=== PATIENT | female | born 1975 | race Caucasian/White ===

== ENCOUNTER 2017-09-30 21:47 | Emergency (ER) | payer MEDICAID, OTHER ==
[~2017-09-30] VITALS: Ht 162.6 cm; Wt 65.8 kg
[~2017-09-30 21:47] MED LIST: CEPHALEXIN500 MG ORAL; CLEOCIN150 MG ORAL; CYCLOBENZAPRINE10 MG ORAL; IBUPROFEN600 MG ORAL; IBUPROFEN800 MG ORAL; NKM; NORCO 5-325 TA1 EACH ORAL; ZOFRAN ODT4 MG ORAL
[2017-09-30] MEDS ORDERED: SYNTHROID25 MCG ORAL (22:02)
--- NOTE | 2017-09-30 23:18 | Emergency Room Report ---
History of Present Illness General Chief Complaint: Pain Source: Patient Present Illness HPI Patient is a 42-year-old female who presented after increased left-sided breast pain. Patient gradual onset of symptoms. The patient stated that she had increased pain to the left side. This had been associated with subjective chills and fever. The patient denied any recent trauma. She had previous breast augmentation Allergies: Coded Allergies: No Known Allergies (Unverified , 09/30/17) Patient History Past Medical History: see triage record Last Menstrual Period: 2 weeks ago Now: No - IUD, 4- years ago Reviewed Nursing Documentation: PMH: Agreed; PSxH: Agreed Nursing Documentation-PMH Past Medical History: No History, Except For Hx Cardiac Problems: No - hypothyroidism Review of Systems All Other Systems: negative except mentioned in HPI Physical Exam Vital Signs Date Time Temp Pulse Resp B/P (MAP) Pulse Ox O2 Delivery O2 Flow Rate FiO2 09/30/17 21:54 98.6 89 16 107/64 97 Room Air 98.6 Sp02 EP Interpretation: reviewed, normal General Appearance: normal inspection, well appearing, no apparent distress, alert, GCS 15, non-toxic Head: atraumatic ENT: normal ENT inspection, hearing grossly normal, normal voice Neck: normal inspection, full range of motion, supple, no bony tend Respiratory: normal inspection, lungs clear, normal breath sounds, no respiratory distress, no retraction, no wheezing Cardiovascular #1: regular rate, rhythm, no edema Gastrointestinal: normal inspection, normal bowel sounds, non tender, soft, no guarding, no hernia Genitourinary: no CVA tenderness Musculoskeletal: normal inspection, back normal, normal range of motion Neurologic: normal inspection, alert, oriented x3, responsive, automatic pattern edger III-XII nml as tested, motor strength/tone normal, speech normal Psychiatric: normal inspection, judgement/insight normal, mood/affect normal Skin: normal inspection, normal color, abrasions - left breast superficial. Medical Decision Making Diagnostic Impression: Primary Impression: Cellulitis of breast ER Course The patient presented for left breast pain. Differential diagnosis included wasn't limited to implant leakage, a breast abscess, deep venous thrombosis, mastitis, breast cancer among others.Because of complexity of patient's case laboratory testing and imaging studies were ordered. The breast ultrasound was ordered to evaluate for possible abscess. The patient was given prescription for Keflex.The patient is advised to follow up with primary care doctor or Gen. surgeon in 1-2 days the for MRI breast. Patient is advised to return if any worsening condition or if any changes in status that are concerning. This report is dictated with [employer] studio technician video operator software which may occasionally lead to discrepancies related to use of this software. Labs Test 09/30/17 22:30 White Blood Count 6.8 K/UL (4.8-10.8) Red Blood Count 4.93 M/UL (4.20-5.40) Hemoglobin 15.0 G/DL (12.0-16.0) Hematocrit 44.6 % (37.0-47.0) Mean Corpuscular Volume 90 FL (80-99) Mean Corpuscular Hemoglobin 30.4 PG (27.0-31.0) Mean Corpuscular Hemoglobin Concent 33.7 G/DL (32.0-36.0) Red Cell Distribution Width 12.1 % (11.6-14.8) Platelet Count 186 K/UL (150-450) Mean Platelet Volume 7.9 FL (6.5-10.1) Neutrophils (%) (Auto) 62.9 % (45.0-75.0) Lymphocytes (%) (Auto) 23.4 % (20.0-45.0) Monocytes (%) (Auto) 7.3 % (1.0-10.0) Eosinophils (%) (Auto) 5.2 % (0.0-3.0) Basophils (%) (Auto) 1.2 % (0.0-2.0) Sodium Level 138 MMOL/L (136-145) Potassium Level 3.5 MMOL/L (3.5-5.1) Chloride Level 104 MMOL/L (98-107) Carbon Dioxide Level 25 MMOL/L (21-32) Anion Gap 10 mmol/L (5-15) Blood Urea Nitrogen 13 mg/dL (7-18) Creatinine 0.7 MG/DL (0.55-1.30) Estimat Glomerular Filtration Rate > 60 mL/min (>60) Glucose Level 94 MG/DL (74-106) Calcium Level 8.9 MG/DL (8.5-10.1) Total Bilirubin 0.2 MG/DL (0.2-1.0) Aspartate Amino Transf (AST/SGOT) 12 U/L (15-37) Alanine Aminotransferase (ALT/SGPT) 21 U/L (12-78) Alkaline Phosphatase 39 U/L (46-116) Total Protein 7.6 G/DL (6.4-8.2) Albumin 3.6 G/DL (3.4-5.0) Globulin 4.0 g/dL Albumin/Globulin Ratio 0.9 (1.0-2.7) Last Vital Signs Date Time Temp Pulse Resp B/P (MAP) Pulse Ox O2 Delivery O2 Flow Rate FiO2 09/30/17 21:54 98.6 89 16 107/64 97 Room Air 98.6 Status: improved Disposition: HOME, SELF-CARE Condition: Stable Scripts Cephalexin* (KEFLEX*) 500 Mg Capsule 500 MG ORAL EVERY 6 HOURS, #28 CAP Prov: Song Wright MD 09/30/17 Referrals: [facility],REFERRING (PCP) Song Wright MD September 30, 2017 23:18
[2017-09-30 23:24] LABS: BASOPHILS % (AUTO) 1.2 % (0.0-2.0); EOSINOPHILS % (AUTO) 5.2 % (0.0-3.0); HEMATOCRIT 44.6 % (37.0-47.0); LYMPHOCYTES % (AUTO) 23.4 % (20.0-45.0); MEAN CORPUSCULAR VOLUME 90 FL (80-99); MONOCYTES % (AUTO) 7.3 % (1.0-10.0); NEUTROPHILS % (AUTO) 62.9 % (45.0-75.0); PLATELET COUNT 186 K/UL (150-450); RED BLOOD COUNT 4.93 M/UL (4.20-5.40); RED CELL DISTRIBUTION WIDTH 12.1 % (11.6-14.8); WHITE BLOOD COUNT 6.8 K/UL (4.8-10.8)
[2017-09-30 23:34] LABS: ANION GAP 10 mmol/L (5-15); BLOOD UREA NITROGEN 13 mg/dL (7-18); CALCIUM 8.9 MG/DL (8.5-10.1); CARBON DIOXIDE 25 MMOL/L (21-32); CHLORIDE 104 MMOL/L (98-107); CREATININE 0.7 MG/DL (0.55-1.30); POTASSIUM 3.5 MMOL/L (3.5-5.1); SODIUM 138 MMOL/L (136-145)
[2017-09-30] MEDS ORDERED: CEPHALEXIN500 MG ORAL (23:38)
[2017-09-30 23:40] LABS: ALANINE AMINOTRANSFERASE 21 U/L (12-78); ALBUMIN 3.6 G/DL (3.4-5.0); ALBUMIN/GLOBULIN RATIO 0.9 (1.0-2.7); ALKALINE PHOSPHATASE 39 U/L (46-116); ASPARTATE AMINO TRANSFERASE 12 U/L (15-37); BILIRUBIN,TOTAL 0.2 MG/DL (0.2-1.0)
[2017-09-30] MEDS ORDERED: Cephalexin 250 MG/5 ML SUSP 100ml ORAL ONE (23:45)
[2017-10-01] MEDS ORDERED: Cephalexin 500mg cap ORAL ONE
[2017-10-01 00:04] VITALS: BP_SYST 107; BP_SYST 112; BP_DIAS 64; BP_DIAS 71
--- NOTE | 2017-10-01 10:10 | Diagnostic Imaging Report ---
Indication: Left breast pain. History of breast implant. TECHNIQUE: Grayscale imaging of the left breast performed in the area of pain. COMPARISON: None FINDINGS: The anterior capsule of the implant is noted. There is a hypoechoic lesion incidentally noted measuring 1 cm within the left breast at 2:00. Findings are nonspecific. There is no evidence of an abscess. IMPRESSION: No evidence of breast abscess. 1 cm hypoechoic mass incidentally noted. Evaluation for this is incomplete without mammographic and clinical evaluation. Note: Sonographic evaluation for breast implant dysfunction or injury is limited. Suggest MRI for further evaluation of this if warranted clinically.
== END 2017-10-01 00:05 | disposition home or self-care (01) ==
LOC: EMR 22:12
DX: N61.0 Mastitis without abscess (principal); E03.9 Hypothyroidism, unspecified
CPT/HCPCS: 36415; 80053; 81025; 85025; 85651; 87040; 99283

== ENCOUNTER 2019-02-27 02:24 | Emergency (ER) | payer MEDICAID ==
[~2019-02-27] VITALS: Ht 162.6 cm; Wt 68.0 kg
[~2019-02-27 02:24] MED LIST changes: +SYNTHROID25 MCG ORAL
--- NOTE | 2019-02-27 02:35 | NUR ---
ED Nurse Note: Recieved pt from home, here with c/o right great toe pain and swelling, s/p mech fall, pt denies syncopal episode or K.O., toe has bruising and swelling noted, pt with pain at 10/10 and constant throbbing, denies any other discomforts, pt assisted tog urney and foot elevated with pillows, pulses present and cap refill >3 sec., pt refuses ice, will resume care as ordered and closely monitor.
--- NOTE | 2019-02-27 02:40 | Emergency Room Report ---
History of Present Illness General Chief Complaint: Lower Extremity Injury Source: Patient, Medical Record Present Illness HPI 44-year-old female with no past medical history. She presents with chief complaint of trauma to right great toe. She states she tripped and fell and the toe roll underneath her. This occurred a few hours ago. Now is very painful and is black and blue. Pain is 10 out of 10. Worse with walking. Better with rest. No other injury. Allergies: Coded Allergies: No Known Allergies (Unverified , 09/30/17) Patient History Past Medical History: see triage record, old chart reviewed Past Surgical History: none Pertinent Family History: none Social History: Denies: smoking Now: No Immunizations: other Reviewed Nursing Documentation: PMH: Agreed; PSxH: Agreed Nursing Documentation-PMH Past Medical History: No History, Except For Hx Cardiac Problems: No - hypothyroidism Review of Systems Eye: Denies: eye pain, blurred vision ENT: Denies: ear pain, nose congestion, throat swelling Respiratory: Denies: cough, shortness of breath Cardiovascular: Denies: chest pain, palpitations Gastrointestinal: Denies: abdominal pain, diarrhea, nausea, vomiting Musculoskeletal: Reports: joint pain; Denies: back pain Skin: Denies: rash Neurological: Denies: headache, numbness Endocrine: Denies: increased thirst, increased urine Hematologic/Lymphatic: Denies: easy bruising All Other Systems: negative except mentioned in HPI Physical Exam Vital Signs Date Time Temp Pulse Resp B/P (MAP) Pulse Ox O2 Delivery O2 Flow Rate FiO2 02/27/19 02:27 98.1 76 18 106/68 (81) 98 Room Air Vitals normal Sp02 EP Interpretation: reviewed, normal General Appearance: well appearing, no apparent distress, alert Head: normocephalic, atraumatic Eyes: bilateral eye PERRL, bilateral eye EOMI ENT: hearing grossly normal, normal pharynx Neck: full range of motion, supple, no meningismus Respiratory: chest non-tender, lungs clear, normal breath sounds Cardiovascular #1: regular rate, rhythm, no murmur Gastrointestinal: normal bowel sounds, non tender, no mass, no organomegaly, no bruit, non-distended Musculoskeletal: back normal, gait/station normal, normal range of motion, other - Right great toe: There is generalized edema and ecchymosis. No deformity. Dorsalis pulses normal. Psychiatric: mood/affect normal Procedures Splinting Splinting : Consent: Verbal Location: rt foot Pre-Made Type: ortho shoe Pre-Proc Neuro Vasc Exam: normal Post-Proc Neuro Vasc Exam: normal Patient Tolerated: Well Complications: None Medical Decision Making Diagnostic Impression: Primary Impression: Toe fracture, right Qualified Codes: S92.424A - Nondisplaced fracture of distal phalanx of right great toe, initial encounter for closed fracture ER Course Patient presents with a distal phalanx right great toe fracture. No dislocation. Patient splinted and discharged home. Other X-Ray Diagnostic Results Other X-Ray Diagnostic Results : X-Ray ordered: X-ray right great toe # of Views/Limited Vs Complete: 3 View Indication: Pain EP Interpretation: Yes Interpretation: no dislocation, no soft tissue swelling, other - nondisplaced distal phalanx fracture Impression: Other - distal phalanx frx Electronically Signed by: Guru Engel MD Last Vital Signs Date Time Temp Pulse Resp B/P (MAP) Pulse Ox O2 Delivery O2 Flow Rate FiO2 02/27/19 02:27 98.1 76 18 106/68 (81) 98 Room Air Status: improved Disposition: HOME, SELF-CARE Condition: Stable Scripts Ibuprofen* (MOTRIN*) 600 Mg Tablet 600 MG ORAL THREE TIMES A DAY, #30 TAB 0 Refills Prov: Guru Engel MD 02/27/19 Hydrocodone/Acetaminophen 5-325* (HYDROCODONE/ACETAMINOPHEN 5-325*) 1 Each Tablet 1 TAB ORAL Q6H PRN for For Pain, #15 TAB 0 Refills Prov: Guru Engel MD 02/27/19 Additional Instructions: Elevate leg. Ice pack to the area. Use crutches as needed. Return if symptoms worsen. Guru Engel MD Feb 27, 2019 02:39
[2019-02-27] MEDS ORDERED: HYDROcodone/Acetamin 5/325 tab ORAL ONE (02:45)
[2019-02-27] MEDS ORDERED: HYDROCODON-ACE1 EA15 ORAL (03:00)
[2019-02-27] MEDS ORDERED: IBUPROFEN600 MG ORAL (03:00)
[2019-02-27 03:10] VITALS: BP 106/68
--- NOTE | 2019-02-27 03:15 | NUR ---
ER DISCHARGE NOTE: Patient is cleared to be discharged per ERMD, pt is aox4, on room air, with stable vital signs. pt was given dc and prescription instructions, pt was able to verbalize understanding, pt id band removed without complications. pt is able to ambulate with steady gait. pt took all belongings. pt toe salvador taped, given crutches with training and return demonstrates proper use and verbalizes safety measures.
--- NOTE | 2019-02-27 04:43 | Diagnostic Imaging Report ---
EXAM: XR Right Toe(s), 2 or More Views CLINICAL HISTORY: TRAUMA TECHNIQUE: Frontal, lateral and oblique views of toe(s) of the right foot. COMPARISON: No relevant prior studies available. FINDINGS: Bones joints: Nondisplaced fracture through the medial base of the first distal phalanx with intra-articular extension. No dislocation. Soft tissues: Unremarkable. No radiopaque foreign body. IMPRESSION: Nondisplaced fracture through the medial base of the first distal phalanx with intra-articular extension.
== END 2019-02-27 03:10 | disposition home or self-care (01) ==
LOC: EMR 02:35
DX: S92.424A Nondisplaced fracture of distal phalanx of right great toe, initial encounter for closed fracture (principal); E03.9 Hypothyroidism, unspecified; W01.0XXA Fall on same level from slipping, tripping and stumbling without subsequent striking against object, initial encounter; Y92.9 Unspecified place or not applicable
CPT/HCPCS: 73660; Z7502; 99283

== ENCOUNTER 2019-03-14 11:05 | Emergency (ER) | payer MEDICAID ==
[~2019-03-14] VITALS: Ht 167.6 cm; Wt 63.5 kg
[~2019-03-14 11:05] MED LIST changes: +HYDROCODON-ACE1 EA15 ORAL
[2019-03-14] MEDS ORDERED: Tetanus/Diptheria/Pertussis IM ONE (12:00)
[2019-03-14] MEDS ORDERED: Ampicillin/Sulbactam Sod 3 GM in NS 110 ML IVPB ONE (12:00)
--- NOTE | 2019-03-14 12:22 | Diagnostic Imaging Report ---
Indication: Foot Pain Comparison: None Findings: 3 views of the right foot were obtained. No acute fractures, malalignment, erosions or periostitis are identified. There is a prominent plantar calcaneal spur. Impression: No acute findings.
[2019-03-14] MEDS ORDERED: AUGMENTIN 875-1 EAC1 ORAL (12:25)
[2019-03-14] MEDS ORDERED: IBUPROFEN600 MG ORAL (12:25)
[2019-03-14] MEDS ORDERED: NORCO 5-325 TA1 EACH ORAL (12:40)
--- NOTE | 2019-03-14 12:44 | Emergency Room Report ---
History of Present Illness General Chief Complaint: Animal Bite Source: Patient Present Illness HPI Patient presents to the emergency department today complaining of dog bite to the right hand. This occurred yesterday. Patient states that since the dog bite she has had significant swelling involving her hand. The infection appears to be tracking up her wrist. She denies any fever nausea vomiting diarrhea chills. The bite is over the dorsum of the hand and the hyperthenar and infection seems to be tracking upwards and there is no evidence of flexor tenosynovitis or abscess or gas formation. No other complaints are noted. Symptoms noted to be moderate. Patient does not remember her last tetanus shot. This was a neighbor's dog. She does not believe the dog has rabies. No other modifying factors. No other associated signs and symptoms. No other complaints were noted. Allergies: Coded Allergies: No Known Allergies (Unverified , 09/30/17) Patient History PMH Narrative Recent right toe injury. Patient is currently in a hard shoe. Patient is requesting x-ray of her right foot. Past Surgical History: none Pertinent Family History: none Social History: Denies: smoking, alcohol use, drug use Now: No Reviewed Nursing Documentation: PMH: Agreed; PSxH: Agreed Nursing Documentation-PMH Past Medical History: No Stated History Hx Cardiac Problems: No - hypothyroidism Review of Systems All Other Systems: negative except mentioned in HPI Physical Exam Vital Signs Date Time Temp Pulse Resp B/P (MAP) Pulse Ox O2 Delivery O2 Flow Rate FiO2 03/14/19 11:39 97.5 78 16 120/80 (93) 98 Room Air Sp02 EP Interpretation: reviewed, normal General Appearance: normal inspection, well appearing, no apparent distress, alert Head: atraumatic Eyes: bilateral eye normal inspection ENT: normal ENT inspection, hearing grossly normal, normal voice Neck: normal inspection, full range of motion, supple, no bony tend Respiratory: normal inspection, lungs clear, normal breath sounds, no respiratory distress, no retraction, no wheezing Cardiovascular #1: regular rate, rhythm, no edema Gastrointestinal: normal inspection, normal bowel sounds, non tender, soft, no guarding, no hernia Genitourinary: no CVA tenderness Musculoskeletal: back normal, normal range of motion, inflammation, swelling - Right hand at the hyperthenar eminence radiating towards the elbow approximately one third of the forearm on the radial aspect was involved. No evidence of air or abscess formation or foreign body., other - Tender right foot., tender Neurologic: normal inspection, alert, responsive, speech normal Psychiatric: normal inspection, judgement/insight normal, mood/affect normal Skin: other - Right hand cellulitis. Medical Decision Making Diagnostic Impression: Primary Impression: Cellulitis Additional Impression: Bite by animal ER Course Patient presents emergency department today complaint dog bite to the hand. Differential considerations include abscess, cellulitis, flexor tenosynovitis just name a few. Patient's exam is consistent with infection secondary to a dog bite but no evidence of abscess or tenosynovitis or gas formation. This appears to be cellulitis. There is no evidence of foreign body. Therefore no x -rays are indicated in the hand. However patient did injure her right foot. She requested x-rays of the right foot. Therefore x-rays were obtained of right foot and was interpreted by radiology to be negative for any acute fracture. Apparently patient's injury appears to be healing. Patient was given 1 dose of Unasyn here and a prescription for Augmentin. Patient is advised to have close follow-up within 24 hours and to return earlier if worse. Patient is advised to follow up with primary doctor in 2-3 days and return the emergency room for any worsening symptoms and as needed. Last Vital Signs Date Time Temp Pulse Resp B/P (MAP) Pulse Ox O2 Delivery O2 Flow Rate FiO2 03/14/19 11:39 97.5 78 16 120/80 (93) 98 Room Air Status: improved Disposition: HOME, SELF-CARE Condition: Stable Scripts Hydrocodone Bit/Acetaminophen 5-325* (NORCO 5-325*) 1 Each Tablet 1 TAB ORAL Q6H PRN for For Pain, #10 TAB 0 Refills Prov: Jean-Pierre Herrera MD 03/14/19 Ibuprofen* (MOTRIN*) 600 Mg Tablet 600 MG ORAL Q8H PRN for For Pain, #20 TAB 0 Refills Prov: Jean-Pierre Herrera MD 03/14/19 Amoxicillin/Potassium Clav 875-125* (AUGMENTIN 875-125 TABLET*) 1 Each Tablet 1 TAB ORAL TWICE A DAY for 10 Days, TAB Prov: Jean-Pierre Herrera MD 03/14/19 Patient Instructions: Cellulitis, Animal Bite Jean-Pierre Herrera MD Mar 14, 2019 12:44
--- NOTE | 2019-03-14 12:55 | NUR ---
ER DISCHARGE NOTE:animal bite form was faxed Patient is cleared to be discharged per ERMD, pt is aox4, on room air, with stable vital signs. pt was given dc and prescription instructions, pt was able to verbalize understanding, pt is able to ambulate with steady gait. pt took all belongings.
[2019-03-14 14:13] VITALS: BP 120/80
[2019-03-14 14:15] VITALS: BP 120/80
== END 2019-03-14 13:00 | disposition home or self-care (01) ==
LOC: EMR 12:00
DX: S61.451A Open bite of right hand, initial encounter (principal); L03.113 Cellulitis of right upper limb; E03.9 Hypothyroidism, unspecified; Z23 Encounter for immunization; W54.0XXA Bitten by dog, initial encounter; Y92.9 Unspecified place or not applicable
CPT/HCPCS: 73620; 90471; 90715; 96365; J0295; Z7502; 99284

== ENCOUNTER → 2020-02-01 | Emergency (ER) | payer MEDICAID ==
[~2020-02-01] MED LIST changes: +AUGMENTIN 875-1 EAC1 ORAL; +IBUPROFEN600 M1 ORAL; +LIDODERM700 M1 TOPIC; +ROBAXIN-750750 MG PO
--- NOTE | 2020-02-01 18:25 | NUR ---
ED Nurse Note: Left without being seen
--- NOTE | 2020-02-01 20:25 | Emergency Room Report ---
History of Present Illness General Chief Complaint: To Be Triaged Present Illness HPI Patient left without being seen. I had no interactions with this patient. Allergies: Coded Allergies: No Known Allergies (Unverified , 09/30/17) COVID-19 Screening Contact w/high risk pt: No Experienced COVID-19 symptoms?: No Nursing Documentation-PMH Hx Cardiac Problems: No - hypothyroidism Medical Decision Making Diagnostic Impression: Primary Impression: Patient left without being seen ER Course Patient left without being seen. I had no interaction with this patient. Disposition: LEFT W/OUT BEING SEEN Condition: Unknown Toni Bashir MD Feb 01, 2020 20:25
== END | disposition left against medical advice (07) ==
LOC: EMR 18:00
DX: Z53.21 Procedure and treatment not carried out due to patient leaving prior to being seen by health care provider (principal)